=== PATIENT | female | born 1985 | race American Indian/Alaskan Native ===

== ENCOUNTER 2021-07-26 14:38 | Emergency (ER) | payer OTHER ==
[2021-07-26 14:43] VITALS: BP 122/83
--- NOTE | 2021-07-26 15:44 | XRay Report ---
CHEST 2 VIEWS INDICATION: chest pain. COMPARISON: None FINDINGS: SUPPORT DEVICES: None. HEART: Within normal limits. LUNGS/PLEURA: No acute air space or interstitial disease. No pneumothorax. ADDITIONAL FINDINGS: None. IMPRESSION: 1. No acute findings. Signer Name: Cheko Law MD Signed: 07/26/2021 3:40 PM Workstation Name: [id number]
[2021-07-26 15:52] LABS: Basophils % (Auto) 0.6 % (0.0-1.8); Eosinophils # (Auto) 0.1 K/mm3 (0.0-0.4); Eosinophils % (Auto) 1.9 % (0.0-4.3); Hematocrit 35.3 % (30.3-42.9); Hemoglobin 12.2 gm/dl (10.1-14.3); Lymphocytes # (Auto) 1.5 K/mm3 (1.2-5.4); Lymphocytes % (Auto) 23.9 % (13.4-35.0); Mean Corpuscular HGB Conc 35 % (30-34); Mean Corpuscular Volume 86 fl (79-97); Monocytes # (Auto) 0.4 K/mm3 (0.0-0.8); Monocytes % (Auto) 6.4 % (0.0-7.3); Platelet Count 330 K/mm3 (140-440); Red Blood Count 4.09 M/mm3 (3.65-5.03); Red Cell Distribution Width 14.4 % (13.2-15.2)
[2021-07-26 15:53] LABS: Alanine Aminotransferase 7 units/L (7-56); Albumin 3.9 g/dL (3.9-5); Blood Urea Nitrogen 5 mg/dL (7-17); Calcium 9.9 mg/dL (8.4-10.2); Hemolysis Index 3
[2021-07-26 15:59] LABS: BUN/Creatinine Ratio 8
--- NOTE | 2021-07-26 18:03 | Emergency Department Report ---
ED General Adult HPI - General Chief complaint: Syncope Stated complaint: SYNCOPE/DIZZINESS Time Seen by Provider: 07/26/21 17:46 Source: patient Mode of arrival: Ambulatory Limitations: No Limitations - History of Present Illness Initial comments: Patient is a 36-year-old female presents emergency room with complaints of lightheadedness that occurred today. She states that she was feeling lightheaded and fainted began to feel nauseous and overheated. She states her symptoms have resolved. Patient states that 3 days ago she went to urgent care due to left ear pain and sore throat and was prescribed amoxicillin. She states that she had a COVID-19 swab performed and is awaiting her results. She has not been vaccinated for COVID-19. She denies any syncope, chest pain, shortness of breath, hemoptysis, leg swelling, vomiting, diarrhea. No past medical history. Allergy to NSAIDs and tramadol. She is currently on her menstrual cycle. She states that she has an upcoming appointment with her primary care doctor tomorrow 07/27/21. - Related Data Allergies Allergy/AdvReac Type Severity Reaction Status Date / Time aspirin AdvReac Anaphylaxis Verified 07/26/21 14:44 ibuprofen AdvReac Anaphylaxis Verified 07/26/21 14:44 naproxen AdvReac Anaphylaxis Verified 07/26/21 14:44 NSAIDS (Non-Steroidal AdvReac Anaphylaxis Verified 07/26/21 14:44 Anti-Inflamma tramadol AdvReac Anaphylaxis Verified 07/26/21 14:44 ED Review of Systems ROS: Stated complaint: SYNCOPE/DIZZINESS Other details as noted in HPI Comment: All other systems reviewed and negative ED Past Medical Hx - Past Medical History Previous Medical History?: No ED Physical Exam - General Limitations: No Limitations General appearance: alert, in no apparent distress - Head Head exam: Present: atraumatic, normocephalic - Eye Eye exam: Present: normal appearance, PERRL, EOMI. Absent: periorbital swelling, periorbital tenderness Pupils: Present: normal accommodation - ENT ENT exam: Present: normal orophraynx, mucous membranes moist, TM's normal bi laterally, normal external ear exam - Respiratory Respiratory exam: Present: normal lung sounds bilaterally. Absent: respiratory distress, wheezes, rales, rhonchi, stridor, chest wall tenderness, accessory muscle use, decreased breath sounds, prolonged expiratory - Cardiovascular Cardiovascular Exam: Present: regular rate, normal rhythm, normal heart sounds. Absent: systolic murmur, diastolic murmur, rubs, gallop - Neurological Exam Neurological exam: Present: alert, oriented X3, CN II-XII intact, normal gait. Absent: motor sensory deficit - Psychiatric Psychiatric exam: Present: normal affect, normal mood - Skin Skin exam: Present: warm, dry, intact ED Course Vital Signs 07/26/21 14:39 Temperature 99.2 F Pulse Rate 96 H Respiratory 18 Rate Blood Pressure 122/83 [Left] O2 Sat by Pulse 100 Oximetry ED Medical Decision Making - Lab Data Result diagrams: 07/26/21 15:03 07/26/21 15:03 Lab Results 07/26/21 07/26/21 Range/Units 15:03 15:03 WBC 6.5 (4.5-11.0) K/mm3 RBC 4.09 (3.65-5.03) M/mm3 Hgb 12.2 (10.1-14.3) gm/dl Hct 35.3 (30.3-42.9) % MCV 86 (79-97) fl MCH 30 (28-32) pg MCHC 35 H (30-34) % RDW 14.4 (13.2-15.2) % Plt Count 330 (140-440) K/mm3 Lymph % (Auto) 23.9 (13.4-35.0) % Grant % (Auto) 6.4 (0.0-7.3) % Eos % (Auto) 1.9 (0.0-4.3) % Baso % (Auto) 0.6 (0.0-1.8) % Lymph # (Auto) 1.5 (1.2-5.4) K/mm3 Grant # (Auto) 0.4 (0.0-0.8) K/mm3 Eos # (Auto) 0.1 (0.0-0.4) K/mm3 Baso # (Auto) 0.0 (0.0-0.1) K/mm3 Seg Neutrophils % 67.2 (40.0-70.0) % Seg Neutrophils # 4.3 (1.8-7.7) K/mm3 Sodium 140 (137-145) mmol/L Potassium 4.3 (3.6-5.0) mmol/L Chloride 104.1 (98-107) mmol/L Carbon Dioxide 25 (22-30) mmol/L Anion Gap 15 mmol/L BUN 5 L (7-17) mg/dL Creatinine 0.6 (0.6-1.2) mg/dL Estimated GFR > 60 ml/min BUN/Creatinine Ratio 8 % Glucose 97 (65-100) mg/dL Calcium 9.9 (8.4-10.2) mg/dL Total Bilirubin 0.40 (0.1-1.2) mg/dL AST 14 (5-40) units/L ALT 7 (7-56) units/L Alkaline Phosphatase 79 (35-129) units/L Troponin T < 0.010 (0.00-0.029) ng/mL Total Protein 7.7 (6.3-8.2) g/dL Albumin 3.9 (3.9-5) g/dL Albumin/Globulin Ratio 1.0 % - EKG Data EKG shows normal: sinus rhythm, axis, QRS complexes, ST-T waves Rate: normal - Radiology Data Radiology results: report reviewed Ordering Physician: SARAH HOPKINS MD Date of Service: 07/26/21 Procedure(s): XR chest routine 2V Accession Number(s): [id number] cc: ED MD SANDEEP Fluoro Time In Minutes: CHEST 2 VIEWS INDICATION: chest pain. COMPARISON: None FINDINGS: SUPPORT DEVICES: None. HEART: Within normal limits. LUNGS/PLEURA: No acute air space or interstitial disease. No pneumothorax. ADDITIONAL FINDINGS: None. IMPRESSION: 1. No acute findings. Signer Name: Cheko Law MD Signed: 07/26/2021 3:40 PM Workstation Name: [id number] Transcribed By: BOBBY Dictated By: Cheko Law MD Electronically Authenticated By: Cheko Law MD Signed Date/Time: 07/26/21 1540 DD/ 1539 TD/TT: - Medical Decision Making Patient is a 36-year-old female presents emergency room with complaints of lightheadedness that occurred today. She states that she was feeling lightheaded and fainted began to feel nauseous and overheated. She states her symptoms have resolved. Patient states that 3 days ago she went to urgent care due to left ear pain and sore throat and was prescribed amoxicillin. She states that she had a COVID-19 swab performed and is awaiting her results. She has not been vaccinated for COVID-19. She denies any syncope, chest pain, shortness of breath, hemoptysis, leg swelling, vomiting, diarrhea. No past medical history. Allergy to NSAIDs and tramadol. She is currently on her menstrual cycle. She states that she has an upcoming appointment with her primary care doctor tomorrow 07/27/21. Vitals are normal. No abnormality on physical examination as documented in chart. EKG is within normal limits. Chest x-ray with no acute process. Labs are stable. Troponin is negative. PERC criteria negative for PE, PE unlikely, patient has had not having any chest pain or shortness of breath or leg swelling or pleuritic pain. Symptoms likely related to upper respiratory infection. She has no clinical signs of otitis media or, bacterial pharyngitis/tonsillitis at this time. Discussed supportive care and symptomatic treatment with patient. Discussed the importance of outpatient follow-up. Advised patient Please increase your fluid intake over the next several days. May use Cepacol throat lozenges [id number] to help with sore throat. May use a vaporizer. May gargle with warm salt water. May take Tylenol as needed for fever or body aches. May take cehv-hvw-ooctfsa cold symptom relief medication such as Mucinex or TheraFlu. Get plenty of rest. Follow-up with a primary care doctor for reexamination. Return to emergency room immediately for any new or worsening symptoms including but not limited to difficulty breathing, shortness of breath, severe chest pain, unable to tolerate by mouth intake, etc. please self quarantine as you are awaiting your COVID-19 results, if positive, you will need to quarantine for 10 days from onset of symptoms. Critical care attestation.: If time is entered above; I have spent that time in minutes in the direct care of this critically ill patient, excluding procedure time. ED Disposition Clinical Impression: Lightheaded Upper respiratory infection Qualifiers: URI type: unspecified URI Qualified Code(s): J06.9 - Acute upper respiratory infection, unspecified Disposition: 01 HOME / SELF CARE / HOMELESS Is pt being admited?: No Does the pt Need Aspirin: No Condition: Stable Instructions: Near-Syncope, Lmzl-ge-Yavh, Viral Respiratory Infection Test Additional Instructions: Please increase your fluid intake over the next several days. May use Cepacol throat lozenges [id number] to help with sore throat. May use a vaporizer. May gargle with warm salt water. May take Tylenol as needed for fever or body aches. May take vavk-rpy-xhtxeej cold symptom relief medication such as Mucinex or TheraFlu. Get plenty of rest. Follow-up with a primary care doctor for reexamination. Return to emergency room immediately for any new or worsening symptoms including but not limited to difficulty breathing, shortness of breath, severe chest pain, unable to tolerate by mouth intake, etc. please self quarantine as you are awaiting your COVID-19 results, if positive, you will need to quarantine for 10 days from onset of symptoms. Referrals: your, primary care doctor [Other] - 2-3 Days Time of Disposition: 18:02 Print Language: AMHARIC
--- NOTE | 2021-07-27 09:45 | Electrocardiograph Report ---
[facility] Test Date: 2021-07-26 Test Time: 15:00:34 Pat Name: FAWN WELDON Department: Room: Gender: F Director Of Reimbursement: JOSY : 1985 Requested By: ED DOC Order Number: [id number] Reading MD: Uziel Reyes Measurements Intervals [place] Rate: 81 P: 67 IA: 143 QRS: 67 QRSD: 65 T: 41 QT: 345 QTc: 401 Interpretive Statements Sinus rhythm No previous ECG available for comparison Electronically Signed On 07-27-2021 9:45:38 EDT by Uziel Reyes
== END 2021-07-26 18:24 | disposition home or self-care (01) ==
LOC: ED 14:38
DX: J06.9 Acute upper respiratory infection, unspecified (principal); R42 Dizziness and giddiness; Z88.5 Allergy status to narcotic agent; Z88.6 Allergy status to analgesic agent
CPT/HCPCS: 36415; 71046; 80053; 84484; 85025; 93005; 99283